=== PATIENT | male | born 1965 | race Caucasian/White ===

== ENCOUNTER 2018-04-01 10:32 | Outpatient (CLI) | payer BC, SELFPAY ==
--- NOTE | 2018-04-01 10:29 | DI.RAD_ITS ---
SYMPTOMS/DIAGNOSIS: F/U FX RIGHT KNEE: Two views. No priors for comparison. There does appear to be a nondisplaced fracture involving the lateral aspect of the proximal tibia with involvement of the lateral tibial plateau. No other fractures or dislocations are seen. There is a joint effusion present.
== END 2018-04-01 10:52 ==
PROVIDERS: Visit Provider Orthopaedic Surgery
DX: S82.144D Nondisplaced bicondylar fracture of right tibia, subsequent encounter for closed fracture with routine healing (principal)
CPT/HCPCS: 73560

== ENCOUNTER 2018-04-29 10:07 | Outpatient (CLI) | payer BC, SELFPAY ==
--- NOTE | 2018-04-29 09:40 | DI.RAD_ITS ---
SYMPTOMS/DIAGNOSIS: FOLLOW UP RIGHT KNEE: Three views. Comparison 04/01/18. There has been no change in alignment of the fracture involving the lateral tibial plateau. There has been interval healing compared to the prior examination. No new fracture or dislocation is identified. There is a small suprapatellar joint effusion. The soft tissues are otherwise unremarkable. IMPRESSION: Healing lateral tibial plateau fracture.
== END 2018-04-29 10:27 ==
PROVIDERS: Visit Provider Orthopaedic Surgery
DX: S82.144D Nondisplaced bicondylar fracture of right tibia, subsequent encounter for closed fracture with routine healing (principal); M25.461 Effusion, right knee
CPT/HCPCS: 73562

== ENCOUNTER 2018-05-27 09:45 | Outpatient (CLI) | payer BC, SELFPAY ==
--- NOTE | 2018-05-27 09:53 | DI.RAD_ITS ---
SYMPTOM/DIAGNOSIS: F/U FX RIGHT KNEE: The bony structures are normally mineralized. There may be subtle narrowing of the medial tibial femoral joint compartment. There is no evidence of a joint effusion. The examination is otherwise unremarkable.
== END 2018-05-27 10:05 ==
PROVIDERS: Visit Provider Physician Assistant Surgical
DX: S82.144D Nondisplaced bicondylar fracture of right tibia, subsequent encounter for closed fracture with routine healing (principal)
CPT/HCPCS: 73560